=== PATIENT | male | born 1970 | race Caucasian/White ===

== ENCOUNTER 2020-09-10 10:35 | Emergency (ER) | payer BC, OTHER ==
[2020-09-10 10:42] VITALS: RESP 18; TEMP 98.5
[2020-09-10] MEDS ORDERED: MORPHINE SULFATE 4 MG/ML SYRINGE IV STA (10:59)
[2020-09-10 11:44] LABS: Basophils # (A) 0.1 k/uL (0-0.2); Basophils % (A) 1 %; Eosinophils # (A) 0.1 k/uL (0-0.7); Eosinophils % (A) 1 %; HCT 46.5 % (39.0-53.0); Lymphocytes # (A) 1.5 k/uL (1.0-4.8); Lymphocytes % (A) 12 %; MCH 32.7 pg (25.0-35.0); MCHC 34.4 g/dL (31.0-37.0); Mean Platelet Volume 8.1; Monocytes # (A) 0.3 k/uL (0-1.0); Monocytes % (A) 2 %; Neutrophils # (A) 10.4 k/uL (1.3-7.7); Neutrophils % (A) 84 %; Platelet Count 216 k/uL (150-450); RDW 12.9 % (11.5-15.5); WBC 12.5 k/uL (3.8-10.6)
[2020-09-10 11:54] LABS: ALT 15 U/L (4-49); AST 18 U/L (17-59); African American GFR (CKD) >90 (>60 ml/min/1.73 sqM); Albumin 4.2 g/dL (3.5-5.0); Alkaline Phosphatase 56 U/L (38-126); Anion Gap 9 mmol/L; Blood Urea Nitrogen 13 mg/dL (9-20); Calcium 9.2 mg/dL (8.4-10.2); Carbon Dioxide 22 mmol/L (22-30); Chloride 104 mmol/L (98-107); Glucose 123 mg/dL (74-99); Non-African American GFR(CKD) >90 (>60 ml/min/1.73 sqM); Potassium 4.6 mmol/L (3.5-5.1); Sodium 135 mmol/L (137-145); Total Bilirubin 0.4 mg/dL (0.2-1.3); Total Protein 6.8 g/dL (6.3-8.2)
--- NOTE | 2020-09-10 12:49 | CT ---
EXAMINATION TYPE: CT lumbar spine w con DATE OF EXAM: 09/10/2020 COMPARISON: 10/14/2010 MRI HISTORY: low back pain CT DLP: 1473.6 mGycm CONTRAST: CT scan of the lumbar is performed with IV Contrast, patient injected with 100 mL of Isovue 300. TECHNIQUE: CT of the lumbar spine is performed on a spiral scan at 3 mm thick sections. Reconstructed images are performed in the coronal and sagittal planes. FINDINGS: T12-L1: No focal disc herniation or significant disc bulge is evident. No spinal canal stenosis or neural foraminal stenosis is present. L1-L2: No focal disc herniation or significant disc bulge is evident. No spinal canal stenosis or n eural foraminal stenosis is present L2-L3: There is some mild disc bulging L2-L3 with mild anterior thecal sac flattening. No AP spinal c anal stenosis is present. L3-L4: Mild disc bulge with mild anterior thecal sac flattening. No AP spinal canal stenosis is prese nt. Neural foramen are patent. L4-L5: Broad-based disc bulge is present with anterior thecal sac flattening. Some endplate spurring is present which may be contributing to inferior foraminal narrowing. No spinal canal stenosis presen t. L5-S1: No focal disc herniation or significant disc bulge is evident. No spinal canal stenosis or n eural foraminal stenosis is present. Facet hypertrophy is posterior lateral thecal sac compression an d some lateral recess stenosis. Correlate with left S1 radicular symptoms. Vertebral alignment appears normal. No suspicious enhancement is evident. IMPRESSION: 1. Mild broad-based disc bulging L2-3, L3-4, L4-5 with mild anterior thecal sac flattening without st enosis. 2. Facet hypertrophy is present. This is most notable at L5-S1 on the left likely causing left S1 rad icular compression. Correlate with radicular symptoms. 3. Findings are stable from the 10/14/2010 MRI.
--- NOTE | 2020-09-10 13:06 | ED ---
Back Pain HPI - General Chief Complaint: Back Pain/Injury Stated Complaint: Back injury Time Seen by Provider: 09/10/20 10:46 Source: patient, RN notes reviewed Limitations: no limitations - History of Present Illness Initial Comments: Patient is a 50-year-old male that presents to the emergency room complaining of low back pain since Monday. He notes he was riding his lawnmower when he had a pothole and felt a pop in his lower back. He does note that he does have a history of chronic low back injuries and pain. He notes that he is able to urinate but has been constipated. He notes that he did start some new pain medications recently which could be a concerning factor. He did appear to be mildly uncomfortable while sitting up in bed. He noted that his pain was brant roximate 7-8 unrelieved with at home medications. She denied any saddle anesthesia bladder incontinence or bowel incontinence. He denied any chest pain shortness of breath headache nausea vomiting diarrhea constipation fever fatigue chills. - Related Data Home Medications Medication Instructions Recorded Confirmed Baclofen [Lioresal] 20 mg PO TID 09/10/20 09/10/20 Gabapentin 300 mg PO HS 09/10/20 09/10/20 predniSONE [Deltasone] See Taper PO DIRECTED 09/10/20 09/10/20 Allergies Allergy/AdvReac Type Severity Reaction Status Date / Time No Known Allergies Allergy Verified 09/10/20 11:32 Review of Systems ROS Statement: Those systems with pertinent positive or pertinent negative responses have been documented in the HPI. ROS Other: All systems not noted in ROS Statement are negative. Past Medical History Past Medical History: GERD/Reflux Additional Past Medical History / Comment(s): DDD History of Any Multi-Drug Resistant Organisms: None Reported Past Surgical History: Hernia Repair, Orthopedic Surgery Additional Past Surgical History / Comment(s): vasectomy Past Psychological History: No Psychological Hx Reported Smoking Status: Current every day smoker Past Alcohol Use History: Occasional Past Drug Use History: Marijuana General Exam Limitations: no limitations General appearance: alert, in no apparent distress Head exam: Present: atraumatic, normocephalic, normal inspection Eye exam: Present: normal appearance, PERRL, EOMI. Absent: scleral icterus, conjunctival injection, periorbital swelling Neck exam: Present: normal inspection Respiratory exam: Present: normal lung sounds bilaterally. Absent: respiratory distress, wheezes, rales, rhonchi, stridor Cardiovascular Exam: Present: regular rate, normal rhythm, normal heart sounds. Absent: systolic murmur, diastolic murmur, rubs, gallop, clicks Extremities exam: Present: normal inspection, full ROM, normal capillary refill. Absent: tenderness, pedal edema, joint swelling, calf tenderness Back exam: Present: normal inspection Neurological exam: Present: alert, oriented X3 Psychiatric exam: Present: normal affect, normal mood Skin exam: Present: warm, dry, intact, normal color. Absent: rash Course Vital Signs 09/10/20 10:39 Temperature 98.5 F Pulse Rate 80 Respiratory 18 Rate Blood Pressure 138/83 O2 Sat by Pulse 98 Oximetry Medical Decision Making - Medical Decision Making 50-year-old male complaining of low back pain after hitting [employer]'s lawnmower Monday. Basic labs, CT of the lumbar spine ordered. Labs unremarkable. Computed tomography scan stable compared to MRI done in 2010. 4 mg morphine ordered for pain. Case discussed with Dr. Iraheta, patient discharge home with follow-up to primary care and orthopedics as needed. - Lab Data Result diagrams: 09/10/20 11:31 09/10/20 11:31 Lab Results 09/10/20 09/10/20 Range/Units 11:31 11:31 WBC 12.5 H (3.8-10.6) k/uL RBC 4.90 (4.30-5.90) m/uL Hgb 16.0 (13.0-17.5) gm/dL Hct 46.5 (39.0-53.0) % MCV 95.0 (80.0-100.0) fL MCH 32.7 (25.0-35.0) pg MCHC 34.4 (31.0-37.0) g/dL RDW 12.9 (11.5-15.5) % Plt Count 216 (150-450) k/uL MPV 8.1 Neutrophils % 84 % Lymphocytes % 12 % Monocytes % 2 % Eosinophils % 1 % Basophils % 1 % Neutrophils # 10.4 H (1.3-7.7) k/uL Lymphocytes # 1.5 (1.0-4.8) k/uL Monocytes # 0.3 (0-1.0) k/uL Eosinophils # 0.1 (0-0.7) k/uL Basophils # 0.1 (0-0.2) k/uL Sodium 135 L (137-145) mmol/L Potassium 4.6 (3.5-5.1) mmol/L Chloride 104 (98-107) mmol/L Carbon Dioxide 22 (22-30) mmol/L Anion Gap 9 mmol/L BUN 13 (9-20) mg/dL Creatinine 0.83 (0.66-1.25) mg/dL Est GFR (CKD-EPI)AfAm >90 (>60 ml/min/1.73 sqM) Est GFR (CKD-EPI)NonAf >90 (>60 ml/min/1.73 sqM) Glucose 123 H (74-99) mg/dL Calcium 9.2 (8.4-10.2) mg/dL Total Bilirubin 0.4 (0.2-1.3) mg/dL AST 18 (17-59) U/L ALT 15 (4-49) U/L Alkaline Phosphatase 56 (38-126) U/L Total Protein 6.8 (6.3-8.2) g/dL Albumin 4.2 (3.5-5.0) g/dL - Radiology Data Radiology results: report reviewed, image reviewed CT of the lumbar spine: Mild broad based disc bulging at L2 to L3 L3-L4 L4-L5 with mild anterior thecal sac flattening without stenosis. Facet hypertrophy is present. This is most notable L5-S1 on the left likely causing left S1 radicular compression. Findings are stable from the 10/14/2010 MRI. Disposition Clinical Impression: Sciatica, Strain of lumbar region Disposition: HOME SELF-CARE Condition: Stable Instructions (If sedation given, give patient instructions): Acute Low Back Pain (ED) Additional Instructions: Please return to the Emergency Department if symptoms worsen or any other concerns. Follow-up with primary care in the next oral days. Follow-up with orthopedics as needed. Take pain medication as prescribed. Rest for the next several days, limit walking as much as possible. Avoid any strenuous activity or exercise. Is patient prescribed a controlled substance at d/c from ED?: No Referrals: Miguel Martinez DO [Primary Care Provider] - 1-2 days Yuriy Canales DO [Doctor of Osteopathic Medicine] - 1-2 days Time of Disposition: 13:06
[2020-09-10 13:16] VITALS: BP 121/71; PULSE 53
== END 2020-09-10 13:16 | disposition home or self-care (01) ==
LOC: EC 10:35
DX: S39.012A Strain of muscle, fascia and tendon of lower back, initial encounter (principal); K21.9 Gastro-esophageal reflux disease without esophagitis; K59.00 Constipation, unspecified; F17.200 Nicotine dependence, unspecified, uncomplicated; F12.90 Cannabis use, unspecified, uncomplicated; Z79.52 Long term (current) use of systemic steroids; Z79.899 Other long term (current) drug therapy; X58.XXXA Exposure to other specified factors, initial encounter
CPT/HCPCS: 51798; 36415; 80053; 85025; 72132; 99284; 96374; J2270; Q9967

== ENCOUNTER → 2020-12-08 | Outpatient (CLI) | payer OTHER ==
--- NOTE | 2020-12-08 11:16 | XR ---
Right ankle and right foot HISTORY: Pain and swelling, trauma one week prior 3 views of the right foot and 3 views of the right ankle submitted. Bone mineralization, joint spaces and alignment are maintained. There is a plantar cannula spur. Enth esophyte present in the insertion of the Achilles tendon. Small ossific density dorsal to the distal first metatarsal is well corticated and not felt likely to be acute. There are degenerative changes a t the intertarsal and tibiotalar joints. There is mild soft tissue swelling present. IMPRESSION: No acute fracture or dislocation is evident.
== END | disposition home or self-care (01) ==
LOC: RADXRYALE 08:35
PROVIDERS: ATTEND Physician Assistant
DX: M25.571 Pain in right ankle and joints of right foot (principal); M79.671 Pain in right foot; M79.89 Other specified soft tissue disorders

== ENCOUNTER → 2021-04-10 | Outpatient (CLI) | payer OTHER ==
--- NOTE | 2021-04-11 09:59 | MR ---
EXAMINATION TYPE: MR cervical spine wo con DATE OF EXAM: 04/10/2021 COMPARISON: None HISTORY: Neck pain, spasms, and numbness in hands. TECHNIQUE: Multiplanar, multisequence images of the cervical spine were acquired without contrast. C2-C3: No evidence for degenerative disc disease. No disc bulge/herniation or protrusion. No Canal stenosis. Foramina are patent bilaterally. C3-C4: There is uncovertebral joint hypertrophy and facet arthropathy resulting in right greater than left, encroachment. Minimal disc bulge causes only slight anterior mass effect on the thecal sac. C4-C5: No evident disc herniation. No foraminal encroachment. C5-C6: Posterior right paracentral disc bulge causes anterolateral mass effect on the thecal sac, the re is uncovertebral joint hypertrophy contributing to cause some right-sided foraminal encroachment. C6-C7: Left posterior paracentral disc bulge, anterolateral mass effect on the thecal sac is noted. N o significant foraminal encroachment. C7-T1: No evidence for degenerative disc disease. No disc bulg e/herniation or protrusion. No Canal stenosis. Foramina are patent bilaterally. Cervical segments are intact. There is normal alignment. Cervical spinal cord is of normal signal. Craniovertebral junction relationships are within normal limits. Cervical vertebral bodies show pre served height and alignment. There is spondylosis at C5-6 with some endplate discogenic marrow signal change and C6-7. IMPRESSION: Degenerative disc disease, multilevel foraminal encroachment.
== END | disposition home or self-care (01) ==
LOC: RADMRIMAIN 10:51
PROVIDERS: ATTEND Physician Assistant
DX: M50.123 Cervical disc disorder at C6-C7 level with radiculopathy (principal)
CPT/HCPCS: 72141

== ENCOUNTER → 2021-04-15 | Outpatient (CLI) | payer OTHER ==
--- NOTE | 2021-04-15 10:54 | MR ---
EXAMINATION TYPE: MR lumbar spine wo con DATE OF EXAM: 04/15/2021 COMPARISON: CT lumbar spine 09/10/2020, prior lumbar MRI 10/14/2010 HISTORY: Lower Back Pain across whole lower back into Both Legs. TECHNIQUE: Multiplanar, multisequence images of the lumbar spine were acquired without IV contrast. L1-L2: Normal disc appearance without desiccation. No herniation, protrusion or disc bulging. No ca nal stenosis is present. Foramina are patent bilaterally. L2-L3: Normal disc appearance without desiccation. No herniation, protrusion or disc bulging. No ca nal stenosis is present. Foramina are patent bilaterally. L3-L4: Posterior broad-based disc bulge causes mild anterior mass effect thecal sac. There is facet a rthropathy with hypertrophy ligamentum flavum. Circumferential extension endplate disc complex encroa ches minimally on the inferior aspect of the foramen. L4-L5: Circumferential extension endplate disc complex encroaches upon the bilateral foramina. Hypert rophic changes are present at the facets, lateral recess stenosis is present bilaterally. Posterior e xtension endplate disc complex contacts the anterior thecal sac. L5-S1: Facet arthropathy change is again noted, hypertrophic changes at the facet on the left contact s the left S1 nerve root similar to previous exams. Probable synovial cyst present in the right neura l foramen may contact the right L5 nerve root, correlate for radiculopathy bilaterally. Lumbar segments are intact. No paraspinal masses are identified. Conus medullaris has a normal appe arance. Lumbar vertebral bodies show stable height and alignment, there is multilevel spondylosis wit h endplate discogenic signal change, loss of disc height signal is present L4-5, L3-4 and L2-3 consis tent with disc desiccation and degenerative disc disease. There is no significant spinal stenosis. Ta rlov cysts noted at the sacral level as on prior. Prominence of the left renal collecting system agai n noted greater than right. IMPRESSION: Degenerative disc disease, facet arthropathy, foraminal encroachment and lateral recess encroachment and additional findings above, correlate for radiculopathy.
== END | disposition home or self-care (01) ==
LOC: RADMRIMAIN 09:29
PROVIDERS: ATTEND Physician Assistant
DX: M51.16 Intervertebral disc disorders with radiculopathy, lumbar region (principal); M47.26 Other spondylosis with radiculopathy, lumbar region
CPT/HCPCS: 72148

== ENCOUNTER → 2021-06-17 | Outpatient (CLI) | payer OTHER ==
[2021-06-17 09:24] VITALS: BP 135/84; PULSE 52; RESP 18; TEMP 97.8
--- NOTE | 2021-06-17 09:25 | P.CON ---
Consult Note - . Consult date: 06/17/21 Assessment/Plan:: HISTORY OF PRESENT ILLNESS: 51 yr old male as a referral from Dr. Canales presents today with severe and chronic LBP secondary to disc bulges, DDD, spondylosis, neuroforaminal encroachment, facet arthropathy and right L5 nerve root encroachment for evaluation. Patient states his pain level is 4 out of 10 in intensity, constant, pressure type sensation in the lower aspect of his lumbar spine but it escalates as high as 6 out of 10 in intensity with twisting, bending or standing for periods of 20 minutes or more. Pain also radiates to the knees bilaterally in the feet bilaterally. Pain is relieved with medications (Motrin, Lyrica), topicals, injections in the past, ice, heat, physical therapy for 2 months approximately 6 months ago, daily home stretching regimen, repositioning and rest. Past Medical History: GERD/Reflux, Lumbar DDD, Peripheral Neuropathy Past Surgical History: Inguinal Hernia Repair (2009), Vasectomy, L Knee Arthroscopy (1997) Social History: Current every day smoker. Occasional ETOH use. +Cannabis use. Family History: Non contributory All: NKDA Meds: See list REVIEW OF ORGAN SYSTEMS: CONSTITUTIONAL: No fevers or chills. No recent weight loss. HEENT: No visual acuity loss, eye pain, difficulties with hearing. No nosebleeds. No difficulty swallowing. RESPIRATORY: Denies any troubles with breathing or dyspnea on exertion. CARDIOVASCULAR: Denies any chest pain, palpitations, or recent heart attacks. GASTROINTESTINAL: Denies fatty food intolerance. Has change in bowel habits and gas bloat. GENITOURINARY: Denies any blood in urine. Has increased urinary frequency. NEUROLOGICAL: + numbness and tingling along the distal extremities. No seizure disorders or headaches. MUSCULOSKELETAL: + back pain SKIN: No skin cancer. No rash. PSYCHIATRIC: Denies current depression or suicidal thoughts. ENDOCRINE: Denies current thyroid disorders. Denies any blood sugar glucose intolerance. HEME/LYMPHATIC: Denies any lumps and bumps around the neck. History of deep venous thrombosis. ALLERGY/IMMUNOLOGY: No immunoglobulin therapy. No immune deficiencies. BREAST: Denies current breast lumps, pain or nipple discharge. Physical Examinations : Constitutional : Cooperative , not in acute distress . HEENT: Neck supple. No Lymphadenopathy. Normal thyroid size . Eyes no ptosis , no icterus, no photophobia . Hearing intact. Normal oropharynx. No Thrush. Respiratory : Chest clear to auscultations bilaterally. No wheezing. No rhonchi. Cardiovascular : Regular rate and rhythm , S1 / S2. No S3 . No S4. Gastrointestinal : Abdomen soft. No tenderness. Bowel sounds x 4. No organomegaly . Genitourinary : Deferred. Neurologic : Cranial nerve II to XII intact. No focal neurological deficits. Psychiatric : alert & oriented x 3. Matching mood & appropriate affect. Judgment & insight intact. Lymphatic No Lymphadenopathy. Musculoskeletal : Cervical Spine Motor strength in the deltoid and biceps: Normal right side. Normal Left side Motor strength biceps and the wrist extensors: Normal right side . Normal left side Motor strength in the triceps muscle: Normal right side. Normal left side Deep tendon reflexes: Normal at the biceps. Normal at Brachioradialis. Normal at triceps Cervical facet loading test: positive bilaterally Spurling test: positive bilaterally Neck distraction test: positive bilater ally Nikko sign: positive bilaterally Lumbar spine Motor strength lower extremities ,thigh and legs 5/5 Right side , 5/5 Left side Deep tendon reflexes : Normal Knee Jerk. Normal Ankle Jerk Vertebral body tenderness over Lumbar facet Loading Test: positive Right / positive Left over L4-L5 Range of motion of the lumbar spine Flexion 30 degrees, extension 10 degrees Straight Leg Raise test: Left/ Right positive at degree Hetal test: positive right / positive left. Severe tenderness over the Sacroiliac joint on the Right / Left sides Gaenslen test: positive bilaterally Seated flexion test: positive bilaterally. Imaging: MRI without contrast from 04/15/21 reviewed Assessment/ Plan : Lumbar spondylosis, Lumbar DDD Recommendation of BL facet block of the medial branches L4-L5. May need a series of injections, up until RFA, for optimal pain relief. Risks, benefits of procedure discussed and patient verbalized understanding. Denies aspirin or anti- coagulant use or medical history of diabetes. All questions answered. I have spent greater than 50 minutes on patient care today. Dr Menchaca was available by phone for the evaluation of this patient. The time was used to review the medical records including relevant urine studies and Prescription history (MAPs), review of the available imaging, evaluation and examination of the patient, coordination of care with the medical staff and if applicable referring physicians, as well as creation of the medical record PQRS Measure Charge Sheet Mode of Arrival: Ambulatory - Pain Location Bilateral Lower Back Non-Pharmacological Interventions: Heat, Home Exercise, Ice, Massage, Physical Therapy Pharmacological Interventions: PRN Medication, Scheduled Medication, Topical Medication PQRS Narrative: Smoking Status Current every day smoker Blood Pressure 135/84 Pain Intensity [Bilateral 6 Lower Back] Scale Used Numeric (1 - 10) Hx Alcohol Use (MH) No Home Medications: Ambulatory Orders Baclofen [Lioresal] 20 mg PO TID 09/10/20 Gabapentin 300 mg PO HS 09/10/20 predniSONE [Deltasone] See Taper PO DIRECTED 09/10/20
== END ==
LOC: PNWHC3 08:20
PROVIDERS: ATTEND Specialist
DX: M51.36 Other intervertebral disc degeneration, lumbar region (principal); M47.816 Spondylosis without myelopathy or radiculopathy, lumbar region; F17.200 Nicotine dependence, unspecified, uncomplicated
CPT/HCPCS: 99211

== ENCOUNTER 2021-07-22 07:00 | Day surgery (SDC) | payer OTHER ==
[2021-07-22 08:29] VITALS: TEMP 97.2
[2021-07-22] MEDS ORDERED: LACTATED RINGERS 1,000 ML IV ONE (08:50)
[2021-07-22] MEDS ORDERED: ROPIVACAINE 5MG/ML 20ML VIAL ONE (08:54)
[2021-07-22] MEDS ORDERED: MIDAZOLAM 2 MG/2 ML VIAL ONE (08:54)
[2021-07-22] MEDS ORDERED: fentaNYL (PF) 50 MCG/ML 2 ML AMP ONE (08:54)
[2021-07-22] MEDS ORDERED: methylPREDNISolone ACETATE 40 MG/ML 1 ML VIAL ONE (08:54)
[2021-07-22 08:57] LABS: Glucose,Whole Blood 88 mg/dL (75-99)
--- NOTE | 2021-07-22 09:11 | P.PCN ---
Date of Procedure: 07/22/21 Procedure(s) Performed: PREOPERATIVE DIAGNOSIS : 1- Lumbar spondylosis with Facet Arthropathy without myelopathy . 2- Lumber degenerative disc disease POSTOPERATIVE DIAGNOSIS: 1- Lumbar spondylosis with Facet Arthropathy without myelopathy . 2- Lumber degenerative disc disease PROCEDURE: Diagnostic bilateral L3 , L4 medial branch block under fluoroscopy guidance(fluoroscopy images available in the radiology Department ) ( To target the facet joint between bilateral L4-5 ) ANESTHESIA:, moderate sedation with intravenous Versed 2 mg and Fentanyl 100 mcg. EBL: Minimal COMPLICATION: None PROCEDURE INDICATION: Chronic low back pain secondary to Facet arthropathy unresponsive to conservative treatment. PROCEDURE DESCRIPTION: the patient was seen and identified in the preop holding area , risks and benefits and possible complications of the procedure and alternative were discussed with the patient, and the patient agreed to proceed with the procedure and signed the consent and vital signs monitored during the procedure and fluoroscopy was used to maximize the benefit and accuracy of the needle placement, and sedation was given to decrease patient anxiety, patient was taken to the procedure room and placed in prone position vital signs monitored in the back prepped with chlorhexidine X3 then under strict sterile technique using a right oblique fluoroscopy ,the junction of the transverse process and the superior articulating process of the right L3 , L4 vertebra which corresponding to the fluoroscopy image of the eye of the Tavon dog on the block side for the medial branches and subsequently , after local infiltration of skin and subcu tissuies with Ropivacaine 0.5 % , one mL at each level ,then 22-gauge Quincke-type needles , 2 needle was used , each one of them placed at the junction of the base of the transverse process and the superior articular process at the appropriate level, and the needle was advanced until the periosteum contacted, needle placement confirmed with AP oblique and lateral view and after appropriate needle placement confirmed, and after negative aspiration for heme and CSF and there was no paresthesia 1 mL of Ropivacaine 0.5% mixed with 20 mg Depo-Medrol , then half mL injected at each level after negative aspiration the needle subsequently removed and the same procedure repeated for the left side at left side at L3 , L4 levels. At the end of the procedure and the needles removed and a bandage applied after the skin was cleaned the cleaning solution patient taken to recovery room in stable condition and monitors in the recovery room for 20-30 minutes and discharged home in stable condition after discharge criteria met and patient will follow up with the pain clinic in 2-4 weeks
[2021-07-22] MEDS ORDERED: IV FLUID CONTINUATION 800 ML IV ONE (09:14)
[2021-07-22 09:37] VITALS: BP 99/61; PULSE 56; RESP 20
--- NOTE | 2021-07-22 15:56 | FL ---
EXAMINATION TYPE: FL guided pain mgmt statistic DATE OF EXAM: 07/22/2021 HISTORY: Fluoroscopy time 7 seconds of fluoroscopy provided. IMPRESSION: 1. Fluoroscopy time.
== END 2021-07-22 09:44 | disposition home or self-care (01) ==
LOC: ORPAIN 07:00
PROVIDERS: ATTEND Specialist
DX: M47.816 Spondylosis without myelopathy or radiculopathy, lumbar region (principal); M51.36 Other intervertebral disc degeneration, lumbar region
CPT/HCPCS: 64493; J2250; J1030; J3010; J2795; 99152

== ENCOUNTER → 2021-08-09 | Outpatient (CLI) | payer OTHER ==
[2021-08-09 14:03] VITALS: BP 147/81; PULSE 97; RESP 18; TEMP 98.4
--- NOTE | 2021-08-09 14:03 | P.PAINPG ---
PQRS Measure Charge Sheet Comment: A 51 yr old male with a history of severe and chronic low back pain secondary to lumbar degenerative disc diseases and lumbar spondylosis with facet arthropathy presents today for evaluation s/p BL RFA L4-L5 #1. He states he experienced 75% relief x 3-4 days on the L side and 75% relief for a "couple of hours" on the R side s/p procedure. Pain level is currently at 8.5/10 in intensity since 1993, constant, pinching/stabbing/tingling/sharp shooting pain down the LEs, R>L. Pain is dull/ achy/ sharp/ shooting towards . Pain is provoked by lifting, standing/walking for periods of 30 min or more. Pain is alleviated with heat, ice, PT last completed July 2021, massage therapy integrated with PT, medications ([place], Neurontin) topicals, inactivity, +Cannabis use and rest. Interventional pain procedures completed include BL RFA L4-L5 Patient is currently on [place], Neurontin Patient denies any side effects of the medication(s), denies excessive drowsiness or sleepiness, denies suicidal ideation and reports that the current pain medication is helping to control the pain and improve activities of daily living. Patient denies any motor or sensory deficits. Patient denies any fever or night sweats, denies any change in the bowel movements or urination. Physical Examination: -Constitutional: Cooperative. Not in acute distress . - Neurologic: Cranial nerve II to XII intact. No focal neurological deficits. - Psychatric: Alert & oriented x 3. Matching mood & appropriate affect. Judgment and insight intact. - Musculoskeletal: Cervical spine: Muscle bulk/ tone/ strength in the bilateral upper extremities normal Vertebral body tenderness to palpation over Spurling test positive Distraction test positive Facet loading test positive Thoracic spine Muscle bulk / tone/ strength in the bilateral paraspinal muscles normal Vertebral body tender to palpation over Facet loading test positive Lumbar spine: Motor bulk/ tone/ strength lower extremities , thigh and legs : 5/5 Deep tendon reflexes : Normal Knee Jerk. Normal Ankle Jerk . Vertebral body tenderness to palpation over BL L4-L5 w jump reflex and paraspinal TTP Lumbar Facet Loading Test positive Straight Leg Raise: positive at 30 degrees right side/ left side Gaenslen's Test positive Sacral spine : Severe tenderness over the Sacroiliac joint: right side / left side Range of motion: Flexion of the lumbar spine <60 degrees Range of motion: Extension of the lumbar spine <20 degrees Gaenslen's Test positive Waqas's Test positive Hetal test: positive right side / left side Thigh Thrust Test Sacral Thrust Test Assessment and plan: Chronic low back pain secondary to lumbar degenerative disc disease , lumbar spondylosis with facet arthropathy without myelopathy Recommendation of BL MBB of L4-L5. #2. May need a series of injections, up until RFA, for optimal pain relief. Risks, benefits of procedure discussed and pt verbalized understanding. Denies anticoagulant use or medical history of diabetes. All patient questions answered MAPS reviewed and it was appropriate. I have spent less than 30 minutes on patient care today. Dr Menchaca was available by phone for the evaluation of this patient. The time was used to review the medical records including relevant urine studies and Prescription history (MAPs), review of the available imaging, evaluation and examination of the patient, coordination of care with the medical staff and if applicable referring physicians, as well as creation of the medical record PQRS Narrative: Smoking Status Current every day smoker Hx Alcohol Use (MH) No Home Medications: Ambulatory Orders Gabapentin 300 mg PO TID 09/10/20 Ibuprofen [Motrin] 800 mg PO Q8HR PRN 07/22/21 Omeprazole [PriLOSEC] 40 mg PO DAILY 07/22/21 Controlled Substance Measures - Controlled Substance Measures Is patient prescribed a controlled substance at discharge?: No
== END ==
LOC: PNWHC3 13:29
PROVIDERS: ATTEND Specialist
DX: M51.36 Other intervertebral disc degeneration, lumbar region (principal); M47.816 Spondylosis without myelopathy or radiculopathy, lumbar region; G89.29 Other chronic pain; F17.200 Nicotine dependence, unspecified, uncomplicated
CPT/HCPCS: 99211

== ENCOUNTER 2021-08-27 07:38 | Day surgery (SDC) | payer OTHER ==
[2021-08-27] MEDS ORDERED: LACTATED RINGERS 1,000 ML IV SCH (07:45)
[2021-08-27 08:07] VITALS: RESP 16; TEMP 97.7
[2021-08-27 08:22] LABS: Glucose,Whole Blood 99 mg/dL (70-110)
[2021-08-27] MEDS ORDERED: ROPIVACAINE 5MG/ML 20ML VIAL ONE (09:08)
[2021-08-27] MEDS ORDERED: fentaNYL (PF) 50 MCG/ML 2 ML AMP ONE (09:08)
[2021-08-27] MEDS ORDERED: LIDOCAINE 1% INJ 10MG/ML (20 ML MDV) ONE (09:08)
[2021-08-27] MEDS ORDERED: MIDAZOLAM 2 MG/2 ML VIAL ONE (09:08)
[2021-08-27] MEDS ORDERED: TRIAMCINOLONE ACETONIDE 40 MG/ML 1 ML VIAL ONE (09:08)
[2021-08-27] MEDS ORDERED: IV FLUID CONTINUATION 1,000 ML IV ONE ×2 (09:26)
--- NOTE | 2021-08-27 09:26 | FL ---
Intraoperative/procedural fluoroscopic services were provided. Total fluoroscopy time is 4 seconds wi th a total of 2 submitted images to PACS. Please see the operative/procedural note for further detail s.
--- NOTE | 2021-08-27 09:27 | P.PCN ---
Date of Procedure: 08/27/21 Description of Procedure: Pre- and Post-operative Diagnosis: Lumbar facet arthropathy, and lumbar spondylosis without myelopathy. Procedure: #2 Diagnostic Medial Branch Block at bilateral Lumbar 4/5 (total 2 levels) Surgeon: Lilo Sagastume Anesthesia: Local: 1% Lidocaine, IV sedation : Versed 2 mg and fentanyl 100 g. Complications: None EBL: None Specimen removed: None Fluoroscopic image: Saved to patient electronic medical records. Indications for Procedure: The patient is well known to pain clinic for his chronic low back pain management. The lumbar facet loading test was positive with a clinical diagnosis of lumbar facet arthropathy. Failed with conservative therapy. Came here for interventional help for better pain relief. Procedure and Findings: The patient was seen and examined. The written informed consent was obtained after explaining the risks, benefits and alternatives of the procedure to the patient. The patient was brought to the procedure room and was placed in the prone position on the operating table table. A pillow was placed under the abdomen to reduce lumbar lordosis. Standard anesthesia monitoring was done through out the procedure. The skin preparation was done with ChloraPrep X1, and draping was done in usual sterile fashion. Sterile technique was observed throughout the procedure. Under fluoroscopic guidance, right-sided the Lumbar 4, 5 and Sacral ala levels were identified in the AP view. For lumbar L4, and L5 levels the targeting area of superior articular process, and close to the most medial and superior aspect of transverse process identified, marked. 1ml of 1% Lidocaine was used with a 25 gauge needle to achieve adequate local anesthesia of the skin and subcutaneous tissue at each level. A 22 gauge 3.5 inch spinal needle was placed and advanced targeting area which was close to the most medial and superior aspect of the transverse process. A bony contact was obtained and needle tip position was confirmed at anteroposterior view. No paresthesia was noted. A negative aspiration was confirmed. 1 ml solution per level was injected, the block solution containing 3 ml of 0.5% ropivacaine preservative-free solution mixed with 40 MG of Kenalog. The needles were removed intact. Entire procedure repeated on the left side. Lumbar area was cleaned and bandages were applied. Disposition : The patient tolerated the procedure very well. The patient was transferred to the recovery room and remained stable until discharged home. The patient was given detailed discharge instructions for infecti a on, bleeding, and increased pain at the injection site, and was advised to seek immediate medical attention should significant side effects develop. The patient will be scheduled with Pain Clinic within 4 weeks duration
[2021-08-27 09:31] VITALS: BP 111/72; PULSE 56
== END 2021-08-27 09:57 | disposition home or self-care (01) ==
LOC: ORPAIN 07:38
DX: M47.816 Spondylosis without myelopathy or radiculopathy, lumbar region (principal); G89.29 Other chronic pain; E11.9 Type 2 diabetes mellitus without complications; K21.9 Gastro-esophageal reflux disease without esophagitis; F17.210 Nicotine dependence, cigarettes, uncomplicated; Z79.899 Other long term (current) drug therapy
CPT/HCPCS: 64493; 64494; J2250; J3301; J2001 ×2; J3010; J2795

== ENCOUNTER → 2021-11-11 | Outpatient (CLI) | payer OTHER | END | disposition home or self-care (01) | LOC: LABPAT 08:51 | PROVIDERS: ATTEND Orthopaedic Surgery | DX: Z01.812 Encounter for preprocedural laboratory examination (principal); M48.061 Spinal stenosis, lumbar region without neurogenic claudication; Z22.322 Carrier or suspected carrier of Methicillin resistant Staphylococcus aureus | CPT/HCPCS: 87070 ==

== ENCOUNTER 2021-11-18 09:07 | Day surgery (SDC) | payer OTHER ==
[2021-11-15 11:37] VITALS: BMI 28.0
[~2021-11-18 09:07] MED LIST: ACETAMINOPHEN TAB 500 MG TAB PO PRN; DEXAMETHASONE SOD PHOSPHATE 4 MG/ML 1 ML VIAL IV ONE; LACTATED RINGERS 1,000 ML IV SCH; ONDANSETRON 4 MG/2 ML VIAL IVP PRN; TRANEXAMIC ACID IN NACL,ISO-OS 1,000 MG in SALINE 1 100ML.BAG IVPB PRN
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
[2021-11-18] MEDS: GABAPENTIN 300 MG CAP PO PRN ×2 (09:54→17:24)
[2021-11-18] MEDS ORDERED: LACTATED RINGERS 1,000 ML IV ONE ×2 (10:06→13:15)
[2021-11-18] MEDS: ONDANSETRON 4 MG/2 ML VIAL IVP ONE ×2 (10:07→15:19)
[2021-11-18] MEDS ORDERED: LIDOCAINE 2% INJ 20 MG/ML (2 ML VIAL) ONE (12:16)
[2021-11-18] MEDS ORDERED: KETAMINE 10 MG/ML 20 ML VIAL ONE (12:16)
[2021-11-18] MEDS ORDERED: SUCCINYLCHOLINE CHLORIDE 200 MG/10 ML VIAL IV ONE (12:16)
[2021-11-18] MEDS ORDERED: PROPOFOL 10 MG/ML 20 ML VIAL IV ONE (12:16)
[2021-11-18] MEDS ORDERED: GLYCOPYRROLATE 0.2 MG/ML 2 ML VIAL ONE (12:16)
[2021-11-18] MEDS ORDERED: fentaNYL (PF) 50 MCG/ML 2 ML AMP ONE (12:16)
[2021-11-18] MEDS ORDERED: TRANEXAMIC ACID IN NACL,ISO-OS 1,000 MG/100 ML BAG ONE (12:16)
[2021-11-18] MEDS ORDERED: MIDAZOLAM 2 MG/2 ML VIAL ONE (12:16)
[2021-11-18] MEDS ORDERED: ROCURONIUM 10 MG/ML (5 ML VIAL) IV ONE (12:16)
[2021-11-18] MEDS ORDERED: NEOSTIGMINE 1 MG/ML 10 ML VIAL ONE (12:16)
[2021-11-18] MEDS ORDERED: BUPIVACAINE (PF) 0.5% 30 ML VIAL SQ ONE (12:21)
[2021-11-18] MEDS ORDERED: THROMBIN (BOVINE) 5,000 UNIT VIAL TOPICAL ONE (12:21)
[2021-11-18] MEDS ORDERED: GELATIN SPONGE,ABSORB (LARGE) 1 EACH SPONGE TOPICAL ONE (12:21)
[2021-11-18] MEDS ORDERED: VANCOMYCIN 1,000 MG VIAL MISCELLANE ONE (14:19)
--- NOTE | 2021-11-18 14:40 | FL ---
EXAMINATION TYPE: FL guidance operating room DATE OF EXAM: 11/18/2021 HISTORY: Fluoroscopy time 13 seconds of fluoroscopy provided. IMPRESSION: 1. Fluoroscopy time.
--- NOTE | 2021-11-18 14:41 | XR ---
EXAM TYPE: LUMBAR SPINE X RAY SERIES COMPARISON: NONE HISTORY: Intraoperative TECHNIQUE: 7 views are submitted. FINDINGS: Limited resolution intraoperative views are submitted. IMPRESSION: 1. Intraoperative image.
[2021-11-18 14:48] VITALS: RESP 16; TEMP 97.8
[2021-11-18] MEDS: HYDROmorphone 0.5 MG/0.5 ML SYRINGE IVP PRN ×3 (15:02→15:49)
[2021-11-18] MEDS ORDERED: HYDROcodone/APAP 10-325MG 1 EACH TAB ONE (16:49)
[2021-11-18] MEDS ORDERED: HYDROcodone/APAP 10-325MG 1 EACH TAB PO ONE (16:55)
[2021-11-18 17:05] VITALS: BP 143/88; PULSE 58
--- NOTE | 2021-11-19 08:20 | P.OP ---
Date of Procedure: 11/18/21 Preoperative Diagnosis: 1. L4-5 central and b/l foraminal stenosis 2. L4-5 spondylosis, mild 3. LE radiculopathy 4. LE weakness Postoperative Diagnosis: 1. L4-5 central and b/l foraminal stenosis 2. L4-5 spondylosis, mild 3. LE radiculopathy 4. LE weakness Procedure(s) Performed: 1. Bilateral laminotomy, partial medial facetectomy and foraminotomy L4-5 (52359/50) 2. INsertion of interlaminar device without fusion, Coflex (00378/59) 3. Use of intraoperative microscope (21029) Implants: 10 mm coflex Anesthesia: GETA Surgeon: Yuriy Canales Digital [employer] Manager #1: Laurie Camejo (Was present and assisted in all aspects ofthe case including positioniong, dissection, decompression hardware, closure dressing. ) Estimated Blood Loss (ml): 50 Pathology: none sent Condition: stable Disposition: PACU Indications for Procedure: Mr. Gil is presenting for evaluation of low back pain and right lower extremity radiculopathy. It was my pleasure to have seen and examined Mr. Gil. In our visit today we have had a chance to go over subjective complaints, physical examination findings and treatments including the natural course history without intervention and various interventional options. The patients imaging demonstrates: XRay taken on 05/20/21 of Lumbar Spine and pelvis: Multiple Views of the lumbar spine obtained and reviewed and demonstrate normal sagittal as well as coronal alignment. Disc heights and vertebral body heights are maintained. There is no fracture or dislocation noted. No listhesis noted. AP pelvis demonstrates congruent level pelvis no fracture or dislocation MRI scan from 04/15/2021 of Lumbar Spine: This is reviewed and demonstrates mild disc bulge L4-L5 causing bilateral foraminal stenosis. There is disc desiccation at this level with disc height loss and hydration loss. There is facet arthrosis noted at this level as well. No acute fracture or dislocation is noted in the lesion. On physical exam, Mr. Gil demonstrates significantly restricted lumbar ROM due to pain with right lower extremity L4-L5 dermatomal disturbance impacting his gait. I have explained to the patient that as their condition progresses it will cause further neurological deficits and eventual paralysis. Based on the patients imaging, physical exam, and the rapid progression and disabling nature of their symptoms, at this time I recommend surgery in the form or a: lumbar (L4-L5) Decompression with Coflex Placement. I discussed the risk and benefits of this procedure at length with Mr. Gil. The patient agreed to considered pursuing the procedure abovementioned. Prior to surgery, she should follow up with her PCP (Cardio, ID, IM etc) for clearance. Questions were invited and answered, and the patient wishes to proceed as outlined below. Currently, I am recommendin.lumbar (L4-L5) Decompression with Coflex Placement 2.Follow up with PCP for surgical clearance 3.Review of surgical risks and benefits as well as an educational packet on the proposed surgical procedure. Description of Procedure: The patient was seen and examined in the preoperative area. All preoperative protocols were followed. Informed consent was obtained risks and benefits of the procedure were discussed at length. Risks including bleeding infection damage to the surrounding tissue and risk of reoperation were discussed with the patient. Risk of anesthesia up to and including was a discussed with the patient. These are outlined in the risk review. They were willing to accept these risks and all of the risks of surgery. The patient was given a weight- based dose of antibiotics in the form of 2 g Ancef. The patient was seen and evaluated by the anesthesia team who deemed them fit for surgery. The site was marked, the patient was willing to proceed with the procedure. The patient was transferred to the operative suite by the Department of anesthesia. They were then drifted off to sleep by the department anesthesia and GETA was performed. The patient tolerated this well. [Deluca catheter was placed by nursing staff, atraumatically]. Once confirmation of lines and ventilation the patient was transferred to a [prone Justino table very carefully]. All bony prominences including wrists, elbows, axilla, chest, hips, and thighs, and feet were padded very well. Special attention was paid to the genitalia and these were padded accordingly. SCDs were placed on bilateral lower extremities and were connected. Arms were well padded and placed [on arm boards up and out in the 90/90 position]. Once in position, again we confirmed good ventilation capabilities and that lines were running appropriately. The patient's lumbar spine was then exposed. 1010s were placed outlining the incision site. Standard alcohol was used to clean the incision site and allowed to dry. C-arm was used to biomark the patient and confirm level for incision which was marked with a skin marker. Operative briefing was performed with all teams and everyone in agreement to proceed. The patient was then prepped and draped in a normal sterile fashion. Timeout was then performed and all parties were in agreement with the procedure to be performed. Midline skin incision was made over the previously marked area and dissection taken down to the lumbar fascia which was identified and cleaned with a Anguiano. Bilateral midline sparing fasciotomy was performed and subperiosteal dissection taken down over the lamina of L3 4 and L5. Pars was identified at L4 and a blunt probe was placed here lateral fluoroscopic image confirmed level for decompression. Versatrac retractor was then placed. Further dissection revealed exuberant overgrowth of facet joints with osteophyte formation as well as scar tissue formation which was removed. Operating microscope was then brought in for visualization. Bilateral midline sparing laminotomies partial medial facetectomy and foraminotomy was performed using high-speed bur, Kerrison rongeur, up-biting curet. Once this was accomplished the interspinous space was cleared of any ligamentous or scar tissue which allowed for visualization and decompression in this area. We then using lateral fluoroscopy-sized for a Coflex implant. A 10 mm implant was selected once this was accomplished it was impacted into place under lateral fluoroscopic guidance and the fins crimped. A Prue was then used test stability and it was stable. We then irrigated the wound thoroughly with 3 L of normal sterile saline 3 L of antibiotic solution. We inspected the area there are no dural leaks or tears meticulous hemostasis was performed. Wound was then closed with OPDS in the facia followed by 0 Vicryl in the deep SubQ tissue followed by 2-0 in the superficial subQ tissue followed by 3-0 stratafix in the subcuticular. Wound edges approximated well. Wound was cleaned and dressed with skin glue allowed to dry and then an optifoam dressing. The patient was transferred back to their hospital bed atraumatically. Patient was then awakened and extubated by the department of anesthesia having tolerated the procedure very well with no complications. They were transferred to the postoperative care unit in stable condition.
== END 2021-11-18 17:59 | disposition home or self-care (01) ==
LOC: OR 09:07
PROVIDERS: ATTEND Orthopaedic Surgery
DX: M48.061 Spinal stenosis, lumbar region without neurogenic claudication (principal); M47.26 Other spondylosis with radiculopathy, lumbar region; K21.9 Gastro-esophageal reflux disease without esophagitis; F17.210 Nicotine dependence, cigarettes, uncomplicated; F12.90 Cannabis use, unspecified, uncomplicated; F10.90 Alcohol use, unspecified, uncomplicated; Z79.899 Other long term (current) drug therapy; Z98.890 Other specified postprocedural states; Z98.52 Vasectomy status
CPT/HCPCS: 86900; 86901; 86850; 72100; 63030; C1713; C1762; J2250; J3370; J0330; J1100; J2710; J0690; J2405; J3010; J2704; J1170; J1790; J2001

== ENCOUNTER → 2022-01-19 | Outpatient (CLI) | payer OTHER ==
[2022-01-19 09:09] VITALS: BP 127/87; PULSE 87; RESP 18; TEMP 98.4
--- NOTE | 2022-01-19 14:23 | P.PAINPG ---
PQRS Measure Charge Sheet Comment: A 51 yr old male with a history of severe and chronic neck and low back pain secondary to cervical & lumbar DDD and spondylosis with facet arthropathy without myelopathy presents today for LBP evaluation. Pt was recommended to have CASSIE L4-L5 in the recent past and he underwent a L4-L5 Decompression w Coflex placement approximately 2 mo ago. Pain level is currently at 8/10 in intensity, constant, localized in the R lower cervical spine, sharp in character w shooting towards the R shoulder and RUE. Pain is provoked by rotation. Pain is alleviated with PT 3 yrs ago, home guided exercises, medications (Flexeril, Neurontin, Ibu, Naproxen), topicals, alternating heat & ice, soaking in Epsom salt and rest. Interventional pain procedures completed include Patient is currently on Flexeril, Neurontin, Ibu, Naproxen Patient denies any side effects of the medication(s), denies excessive drowsiness or sleepiness, denies suicidal ideation and reports that the current pain medication is helping to control the pain and improve activities of daily living. Patient denies any motor or sensory deficits. Patient denies any fever or night sweats, denies any change in the bowel movements or urination. Physical Examination: -Constitutional: Cooperative. Not in acute distress . - Neurologic: Cranial nerve II to XII intact. No focal neurological deficits. - Psychatric: Alert & oriented x 3. Matching mood & appropriate affect. Judgment and insight intact. - Musculoskeletal: Cervical spine: Muscle bulk/ tone/ strength in the bilateral upper extremities normal Vertebral body tenderness to palpation over C6 Spurling test positive Distraction test positive Facet loading test positive Thoracic spine Muscle bulk / tone/ strength in the bilateral paraspinal muscles normal Vertebral body tender to palpation over Facet loading test positive Lumbar spine: Motor bulk/ tone/ strength lower extremities , thigh and legs : 5/5 Deep tendon reflexes : Normal Knee Jerk. Normal Ankle Jerk . Vertebral body tenderness to palpation over Lumbar Facet Loading Test positive Straight Leg Raise: positive at 30 degrees right side/ left side Gaenslen's Test positive Sacral spine : Severe tenderness over the Sacroiliac joint: right side / left side Range of motion: Flexion of the lumbar spine <60 degrees Range of motion: Extension of the lumbar spine <20 degrees Gaenslen's Test positive Hetal test: positive right side / left side Thigh Thrust Test Sacral Thrust Test Imaging MRI without contrast of the cerivcal spine from Apr 10, 2021 reviewed Assessment and plan: Chronic neck and LBP secondary to DDD, spondylosis with facet arthropathy without myelopathy Recommendation of CASSIE C5-C6. May need a series of injections, up to 3 within a 6mo period, for optimal pain relief. Risks, benefits of procedure discussed and pt verbalized understanding. Admits to anticoagulant use or medical history of diabetes. Protocol for discontinuation/ continuation of medications larry procedure discussed. All patient questions answered I have spent less than 30 minutes on patient care today. Dr Menchaca was available by phone for the evaluation of this patient. The time was used to review the medical records including relevant urine studies and Prescription history (MAPs), review of the available imaging, evaluation and examination of the patient, coordination of care with the medical staff and if applicable referring physicians, as well as creation of the medical record PQRS Narrative: Smoking Status Current every day smoker Hx Alcohol Use (MH) No Home Medications: Ambulatory Orders Gabapentin 300 mg PO TID 09/10/20 Ibuprofen [Motrin] 800 mg PO Q8HR PRN 07/22/21 Naproxen 250 mg PO DIRECTED PRN 08/27/21 Pantoprazole [Protonix] 40 mg PO QAM 08/27/21 Multivitamins, Thera [Multivitamin (formulary)] 1 tab PO DAILY 11/15/21 Sertraline [Zoloft] 100 mg PO QAM 11/15/21 Cyclobenzaprine [Flexeril] 10 mg PO TID PRN #40 tab 11/18/21 Gabapentin 300 mg PO TID #90 cap 11/18/21 HYDROcodone/APAP 10-325MG [Pender 10-325] 1 tab PO Q4HR PRN #42 tab 11/18/21 Sennosides/Docusate Sodium [Senna Plus 8.6-50 mg Softgel] 1 each PO BID PRN #20 capsule 11/18/21 cefaDROXiL [Duricef] 500 mg PO Q12HR #6 cap 11/18/21 Controlled Substance Measures - Controlled Substance Measures Is patient prescribed a controlled substance at discharge?: No
== END ==
LOC: PNWHC3 08:42
PROVIDERS: ATTEND Specialist
DX: M47.816 Spondylosis without myelopathy or radiculopathy, lumbar region (principal); M51.36 Other intervertebral disc degeneration, lumbar region; G89.29 Other chronic pain; F17.200 Nicotine dependence, unspecified, uncomplicated
CPT/HCPCS: 99211

== ENCOUNTER 2022-05-10 07:21 | Day surgery (SDC) | payer OTHER ==
[~2022-05-10 07:21] MED LIST changes: -ACETAMINOPHEN TAB 500 MG TAB PO PRN; -DEXAMETHASONE SOD PHOSPHATE 4 MG/ML 1 ML VIAL IV ONE; +LIDOCAINE 1% (10MG/ML) FOR IV START INTRADERMA PRN; -ONDANSETRON 4 MG/2 ML VIAL IVP PRN; -TRANEXAMIC ACID IN NACL,ISO-OS 1,000 MG in SALINE 1 100ML.BAG IVPB PRN
[2022-05-10 08:08] VITALS: TEMP 97.9
[2022-05-10 08:21] LABS: Glucose,Whole Blood 97 mg/dL (70-110)
[2022-05-10] MEDS ORDERED: IOPAMIDOL M200 10 ML VIAL ONE (08:42)
[2022-05-10] MEDS ORDERED: DEXAMETHASONE SOD PHOSPHATE 10 MG/ML 1 ML VIAL ONE (08:42)
--- NOTE | 2022-05-10 09:01 | P.PCN ---
Date of Procedure: 05/10/22 Procedure(s) Performed: PREOPERATIVE DIAGNOSIS: 1-Cervical radiculopathy . 2-cervical degenerative disc disease. 3-cervical spondylosis versus cervical facet arthropathy POSTOPERATIVE DIAGNOSIS: Same as preoperative diagnoses. PROCEDURE 1. Transforaminal epidural steroid injection under fluoroscopic guidance at right C6-7 level. (Fluoroscopy images stored on file in the radiology Department ) ANESTHESIA: Local with 1% lidocaine 3 ml only EBL: Minimal PROCEDURE INDICATION: The patient with severe neck pain and radiculopathy to the upper extremity , the symptoms unresponsive to conservative treatment. PROCEDURE DESCRIPTION / TECHNIQUE: The patient was seen and identified in the preoperative area. Risks, benefits, complications, and alternatives were discussed with the patient. The patient agreed to proceed with the procedure and signed the consent. IV was started, and vital signs were stable. Patient was taken to the OR and time out was completed. The patient was placed in the lateral position on procedure table ( right side up ) The cervical area was prepped and draped in the usual sterile fashion. Critical pause was taken. Vital signs were closely monitored during the procedure. . Using oblique fluoroscopy, the right C6-7 level was identified, in the lateral view , the skin and deeper tissues just below was localized with 1% lidocaine. Subsequently, a 22-gauge 3.5-inch spinal needle was advanced under a tunneled view fluoroscopic guidance just underneath the foraminotomy of at the right C6-7 Under lateral fluoroscopy, the needle was then advanced to the posterior border of the interforaminal space. After negative aspiration of CSF and blood and with no paresthesias, 1 mL Isovue 200 contrast dye was injected excellent epidurogram , 2 mL of block solution containing 20 mg Dexamethasone and 1 mL of 0.9% normal saline PF was injected. Needle was removed . At the end of the procedure, skin was cleansed, and bandages were applied. COMPLICATIONS:none DISPOSITION / PLANS: The patient was placed in a supine position and transferred to the recovery area in a stable condition for observation. There was no evidence of lower extremity motor or sensory deficit after the procedure. Patient was discharged from the recovery room after meeting discharge criteria. Home discharge instructions were given to the patient by the staff. The patient was reexamined prior to discharge.
[2022-05-10 09:06] VITALS: BP 123/78; PULSE 60; RESP 16
--- NOTE | 2022-05-10 09:30 | FL ---
EXAMINATION TYPE: FL guided pain mgmt statistic DATE OF EXAM: 05/10/2022 HISTORY: Fluoroscopy time DAP .69302 of fluoroscopy provided. IMPRESSION: 1. Fluoroscopy time.
== END 2022-05-10 09:20 | disposition home or self-care (01) ==
LOC: ORPAIN 07:21
PROVIDERS: ATTEND Specialist
DX: M50.123 Cervical disc disorder at C6-C7 level with radiculopathy (principal); M47.22 Other spondylosis with radiculopathy, cervical region
CPT/HCPCS: 64479; J1100; Q9966; 64483

== ENCOUNTER → 2022-06-29 | Outpatient (CLI) | payer OTHER | END | disposition home or self-care (01) | LOC: LABPAT 09:32 | PROVIDERS: ATTEND Orthopaedic Surgery | DX: Z01.812 Encounter for preprocedural laboratory examination (principal); M50.20 Other cervical disc displacement, unspecified cervical region; Z22.322 Carrier or suspected carrier of Methicillin resistant Staphylococcus aureus | CPT/HCPCS: 87070 ==

== ENCOUNTER 2022-07-07 11:34 | Day surgery (SDC) | payer OTHER ==
[2022-07-01 09:23] VITALS: BMI 29.0
--- NOTE | 2022-07-07 07:41 | P.HPOR ---
History of Present Illness H&P Date: 06/29/22 .D:Date: 06/29/22 : 09:10am .T:Title: [facility] Date of :[birth year] [id number]: Age: 51 year Height: 6'4" Weight: 240 lbs BMI: 29.21 kg/m2 Occupation: unemployed VAS: 6 CHIEF COMPLAINT: Cervical spine - preoperative visit DOI: Chronic DOS: None regarding the cervical spine HISTORY: Xrays New xrays taken in office Trauma or injury No Work-Related No Pain description aching, burning Location posterior Patient notes that their pain radiates to left upper extremity Activity Modification yes Hand Dominance left TREATMENTS COMPLETED: 6 weeks of PT completed? Month and Year of last PT date? None recent for cervical spine. completed physical therapy with no relief Physician directed home exercise completed? yes Patient has trialed the physician directed home exercise program without ) relief of their symptoms. Medications yes List: Naproxen, gabapentin, motrin, norco and zanaflex Alternative interventions Chiropractic: No Massage therapy: No R.I.C.E: yes heat/ice without relief. Brace: No Injections Yes, within the last 1 year RFA: No SUBJECTIVE: Mr. Gil returns to the office for a follow up of their cervical pain. Patient reports aching, burning cervical pain ongoing for many months with no known injury or trauma to indicate an exact onset of their symptoms. In addition to their cervical pain, they do report that it radiates into the left upper extremity, associated with numbness and tingling through the C5-C6 dermatomal distribution. Furthermore he reports loss in dexterity with regards to the left hand as well over time. Overall the patient has seen a progressive increase in symptoms since their onset. Mr. Gil's symptoms are exacerbated with any twisting of the neck and use of the left arm, due to this they notes that it is increasingly difficult for him to complete many of their daily tasks. Patient is having severe sleep disturbances as well due to their ongoing pain and associated symptoms. Regarding treatments, the patient has previously trialed home exercises, medications, epidural steroid injections, and heat/ice without relief. Patient has also finished physical therapy with no relief. Patient denies trialing any other modalities at this time. For their symptoms, the patient has been taking motrin and norco without improvements. Otherwise the patient denies any f/c/sob/cp, no incision concerns, no bladder or bowel retention/incontinence, no perineal numbness/tingling, and ambulates independently. HPI: Mr. Gil returns to the office on 05/26/2022 for a follow up of their cervical pain. Patient reports aching, burning cervical pain ongoing for many months with no known injury or trauma to indicate an exact onset of their symptoms. In addition to their cervical pain, they do report that it radiates into the left upper extremity, associated with numbness and tingling through the C5-C6 dermatomal distribution. Furthermore he reports loss in dexterity with regards to the left hand as well over time. Overall the patient has seen a progressive increase in symptoms since their onset. Mr. Gil symptoms are exacerbated with any twisting of the neck and use of the left arm, due to this they notes that it is increasingly difficult for Mr. Gil to complete many of their daily tasks. Patient is having severe sleep disturbances as well due to their ongoing pain and associated symptoms. Regarding treatments, the patient has previously trialed home exercises, medications, and heat/ice without relief. Patient has also finished physical therapy with no relief. Patient denies trialing any other modalities at this time. For their symptoms, the patient has been taking naproxen, gabapentin, motrin, zanaflex and norco without improvements. Otherwise the patient denies any f/c/sob/cp, no incision concerns, no bladder or bowel retention/incontinence, no perineal numbness/tingling, and ambulates independently. Mr. Gil returns to the office for a follow up of their cervical pain on 03/30/2022. Patient reports aching, burning cervical pain ongoing for several months with no known injury or trauma to indicate an exact onset of their symptoms. In addition to their cervical pain, they do report that it radiates into the left upper extremity, associated with numbness and tingling through the C5-C6 dermatomal distribution. Furthermore he reports loss in dexterity with regards to the left hand as well over time. Overall the patient has seen a progressive increase in symptoms since their onset. Mr. Gil symptoms are exacerbated with any twisting of the neck and use of the left arm, due to this they notes that it is increasingly difficult for Mr. Gil to complete many of their daily tasks. Patient is having severe sleep disturbances as well due to their ongoing pain and associated symptoms. Regarding treatments, the patient has previously trialed home exercises, medications, and heat/ice without relief. Patient denies trialing any other modalities at this time. For their symptoms, the patient has been taking naproxen and norco without improvements. Otherwise the patient denies any f/c/sob/cp, no incision concerns, no bladder or bowel retention/incontinence, no perineal numbness/tingling, and ambulates independently. Mr. Gil returns to the office on 12/24/2021 for an evaluation of their cervical pain. Patient reports aching, burning cervical pain ongoing for several months with no known injury or trauma to indicate an exact onset of their symptoms. In addition to their cervical pain, they do report that it radiates into the left upper extremity, associated with numbness and tingling through the C5-C6 dermatomal distribution. Furthermore he reports loss in dexterity with regards to the left hand as well over time. Overall the patient has seen a progressive increase in symptoms since their onset. Mr. Gil symptoms are exacerbated with any twisting of the neck and use of the left arm, due to this they notes that it is increasingly difficult for Mr. Gil to complete many of their daily tasks. Patient is having severe sleep disturbances as well due to their ongoing pain and associated symptoms. Regarding treatments, the patient has previously trialed home exercises, medications, and heat/ice without relief. Patient denies trialing any other modalities at this time. For their symptoms, the patient has been taking Gabapentin and Ibuprofen without improvements. Otherwise the patient denies any f/c/sob/cp, no incision concerns, no bladder or bowel retention/incontinence, no perineal numbness/tingling, and ambulates independently. The patients' past social, medical, family, surgical history, as well as review of systems, have been reviewed. Please refer to the Neurosurgery History and Physical form that has been scanned in to our electronic medical record system. 14 points review of systems completed and as stated in HPI, all other systems reviewed are negative. Social History: Reviewed, see appropriate section of the chart for details. P3 Social History: Smoking: current smoker P3 Smoking Amount: 3 PPW Alcohol: occasional alcohol P3 Alcohol Amount: 1-2 drinks/wk Family History: Reviewed, see appropriate section of the chart for details. P2 Past Medical History: Reviewed, see appropriate section of the chart for details. P1 Current Medications: Rx: omeprazole 40 mg capsule,delayed release Ref: 0 Rx: IBU 800 mg tablet Ref: 0 Rx: gabapentin 600 mg tablet Ref: 0 Rx: cefaDROXil 500 mg capsule Ref: 0 PHYSICAL EXAMINATION: General: Awake, alert, appropriate for age, in no acute distress. HEENT: No unusual neck masses around region of lateral neck triangle, thyroid, supraclavicular groove Extremities: Skin warm and dry without acute lesions, coloration, temperature, skin intact, no tenderness or erythema Integument: Hairy patches: ABSENT Dorsal skin dimples: ABSENT Cafe au lait spots: ABSENT Surgical incisions: well healed midline incision about the lumbar spine. Palpation: Please see Pain drawing on Intake sheet for further detail. Midline spinal tenderness: No E6 Cervical Tenderness: No E6 Paralumbar tenderness: YES E6 Parathoracic tenderness: Yes E6 Buttocks tenderness: No E6 Sacroiliac Tenderness: No POSTURAL and MUSCULO-SKELETAL EVALUATION: Coronal Balance: NEUTRAL Recumbent testing: Patient is able to lay flat on back Sagittal Balance: NEUTRAL Shoulder Profile: LEVEL Pelvic Girdle: LEVEL Neck ROM: RESTRICTED with pain Lumbar ROM: RESTRICTED Shoulder ROM: Symmetrical Hip ROM: Symmetrical Knee ROM: Symmetrical Hands: Normal appearance, symmetrical Feet: Normal appearance, Symmetrical VASCULAR STATUS : LEFT RIGHT Wrist Pulses INTACT INTACT Pedal Pulses (Dors. pedis & post.tibialis) INTACT INTACT Color NORMAL NORMAL Edema Absent Absent NEUROLOGIC EXAMINATION: Mental Status:Awake and alert, fully oriented, with normal attention, concentration and memory, and fluent, appropriate speech. Cranial Nerves: I: Olfactory not tested. II: Visual acuity normal, no visual field deficit noted with confrontation. III,IV: Normal pupillary reflexes & intact extraocular movements without nystagmus. V,: Intact symmetrical facial sensation. VII: Intact symmetrical facial motor movement VIII: Hearing intact. IX,X: Intact gag, swallow, & normal voice. XI: Sternocleidomastoid, trapezius function intact. XII: Tongue midline with normal movements. L'hermitte's Sign: Negative / absent Spurling'Sign: Absent bilaterally. Cubital percussion test: Absent bilaterally. Ko-Tinel sign - Carpal region: Absent bilaterally. Straight Leg Raising: Absent bilaterally. Crossed straight leg raise: negative O8 MOTOR EXAM (0-5/5, N/T Muscle appearance: Symmetrical, without signs of atrophy or dystrophy UPPER EXTREMITY RIGHT LEFT Shoulder Abduction 5/5 5/5 Biceps 5/5 4/5 Triceps 4+/5 4/5 Wrist Extension 4+/5 4/5 Hand Intrinsics 5/5 5/5 [employer] Consultant 5/5 5/5 Hand and finger dexterity intact bilaterally? yes Disdiadochokinesis examination negative bilaterally? yes LOWER EXTREMITY RIGHT LEFT Hip Flexion 5/5 5/5 Knee Extension 5/5 5/5 Knee Flexion 5/5 5/5 Dorsiflexion 5/5 5/5 Plantarflexion 5/5 5/5 EHL 5/5 5/5 FHL 5/5 5/5 REFLEXES(0-4/2, NT)Upper ExtremityLower Extremity Right 2 2 Left 2 2 Pathological Reflexes RIGHT LEFT Ko's Present Absent Clonus Absent Absent Babinski Absent Absent Sensory system (0-4, N/T) Test type RU JEFFREY RL LL Joint-Position 2 2 2 2 Vibration 2 2 2 2 Pain & LT sense 2 2 2 2 Dermatomal Deficit: None C5-C6 None None Gait and Functional Evaluation: Ambulatory aids: Cane Romberg's test: Intact bilaterally Steady Gait RADIOGRAPHIC STUDIES: XRay Cervical multiview (Lateral, Flexion, Extension, AP, Oblique) 5 views taken at on 12/24/21 of Spine: it was reviewed and demonstrate spondylosis C5-C6 with disc collapse. There is flattening of the normal cervical lordosis secondary to this change. There is facet arthrosis. There is mild spondylosis noted C4 5 and C6 7. No acute fractures or dislocations. Occipital cervical joints as well as C1-C2 joints are stable. [facility] at [facility] from 04/10/2021 of Cervical Spine: images reviewed with the patient demonstrates C5-C6 herniated nucleus pulposus with moderate to severe stenosis centrally as well as foraminally bilaterally. Beginning stages myomalacia noted. There is disc desiccation at C5-C6 as well as C4 5 and C6 7. To a lesser extent at these other levels. No acute fracture or dislocations otherwise noted occipital cervical C1 2 joints appear stable. IMPRESSION: It was my pleasure to have seen and examined Fer. I reviewed the patient's clinical syndrome, physical findings, and imaging studies during the appointment today. It is my impression that the patient has a diagnosis of. 1. C5-C6 herniated nucleus pulposuswith stenosis 2.left upper extremity weakness 3. left upper extremity radiculopathy 4. Neck pain I outlined the natural course history without intervention and various interv entional options. PLAN All options were reviewed today, we decided the best course of action would be: -Advised patient to continue with supplements, health maintenance, and home exercise programs. Patient expressed understanding and will continue with these modalities. -I discussed treatment options with the patient, including operative and non- operative options, and they have elected to proceed with the following surgical procedure: C5-6 Total disc replacement The indications, risks, benefits, and alternatives to surgery were discussed with the patient and family at length. Specifically (but not limited to) the risks of infection, stiffness, recurrence of symptoms, need for revision surgery, local numbness, neurovascular injury, and blood clots were discussed. The patient's questions were answered. The decision to proceed was made. Consent will be obtained for the procedure. -Ambulate daily -Take pain medications and post op medications as needed and as directed -Ice and rest for pain and swelling control. Spine Surgery Risk Review Mr. Gil is presenting for evaluation of cervical pain. It was my pleasure to have seen and examined Mr. Gil. In our visit today we have had a chance to go over subjective complaints, physical examination findings and treatments including the natural course history without intervention and various interventional options. The patients imaging demonstrates: XRay Cervical multiview (Lateral, Flexion, Extension, AP, Oblique) 5 views taken at on 12/24/21 of Spine: it was reviewed and demonstrate spondylosis C5-C6 with disc collapse. There is flattening of the normal cervical lordosis secondary to this change. There is facet arthrosis. There is mild spondylosis noted C4 5 and C6 7. No acute fractures or dislocations. Occipital cervical joints as well as C1-C2 joints are stable. MRI [facility]completed at [facility] from 04/10/2021 of Cervical Spine: images reviewed with the patient demonstrates C5-C6 herniated nucleus pulposus with moderate to severe stenosis centrally as well as foraminally bilaterally. Beginning stages myomalacia noted. There is disc desiccation at C5-C6 as well as C4 5 and C6 7. To a lesser extent at these other levels. No acute fracture or dislocations otherwise noted occipital cervical C1 2 joints appear stable. On physical exam, Mr. Gil demonstrates: Patient reports aching, burning cervical pain ongoing for many months with no known injury or trauma to indicate an exact onset of their symptoms. In addition to their cervical pain, they do report that it radiates into the left upper extremity, associated with numbness and tingling through the C5-C6 dermatomal distribution. Furthermore he reports loss in dexterity with regards to the left hand as well over time. Overall the patient has seen a progressive increase in symptoms since their onset. Mr. Gil symptoms are exacerbated with any twisting of the neck and use of the left arm, due to this they notes that it is increasingly difficult for Mr. Gil to complete many of their daily tasks. Patient is having severe sleep disturbances as well due to their ongoing pain and associated symptoms. I have explained to the patient that as their condition progresses it will cause further neurological deficits and eventual paralysis. Based on the patients imaging, physical exam, and the rapid progression and disabling nature of their symptoms, at this time I recommend surgery in the form of a: C5-6 Total Disc Replacement. I discussed the risk and benefits of this procedure at length with Mr. Gil. The patient agreed to considered pursuing the procedure abovementioned. Prior to surgery, she should follow up with her PCP (Cardio, ID, IM etc) for clearance. Questions were invited and answered, and the patient wishes to proceed as outlined below. Currently, I am recommendin. C5-6 Total Disc Replacement 2.Follow up with PCP for surgical clearance 3.Review of surgical risks and benefits as well as an educational packet on the proposed surgical procedure. Risks: All surgical procedures come with inherent risks, including those related to positioning, anesthesia, intraoperative findings, and postoperative complications. It is important to understand that surgery does not come with any guarantee of a successful outcome as complications and adverse events are always possible. The patient was given a handout in office today discussing the surgical procedure and risks associated with the intervention, both of which were discussed with the patient. These risks include but are not limited to the following: * Experiencing same, different or even worse symptoms in back, neck, arms, or legs compared to before surgery. Requiring further surgery or other forms of treatment presently or at some time in the future at same or other levels of the intended spine surgery. On an extreme but fortunately relatively rare basis severe complication such as blindness, stroke, heart attack, temporary and/or permanent nerve injury, paralysis, coma, or may occur, sometimes without known explanation. Surgical complications may include but are not limited to risk of infection, fluid accumulation in the surgical dissection site, including a seroma or hematoma, that requires additional surgery, wound drainage, bleeding, new numbness or weakness, vision changes/loss, spinal fluid leakage, non-healing and/or infected incision, headaches, difficulty or inability to swallow, hoarseness, hemopneumothorax, pneumothorax, impotence, retrograde ejaculation, vaginal dryness; injury to nerves, spinal cord, blood vessels, lymphatics or other vital organs (i.e., bowel injury, injury to the great vessels); heterotopic bone formation; complications related to the hardware such as screws, rods, cages including misplaced hardware, device failure, instrumentation at the wrong spine level, hardware fracture/breakage, or hardware loosening; vertebral failure of the spinal column above or below the newly placed hardware; retained surgical instrumentations or devices and the need for further surgery. * Medical risks of the planned spine surgery include but are not limited to generalized Infections to the whole body or local areas outside of the surgical site (sepsis), heart attack, bleeding, anaphylaxis, meningitis, seizure, epilepsy, hearing loss, burn johnson, laceration of the head or other areas of the body, bruising, hypersensitivity of the skin, bladder over distension; allergic reaction; shoulder injury related to positioning; fat, blood and air clots to other areas of the body like heart, lungs, brain; failure of internal organs such as lungs, kidneys, liver and excessive bleeding. If blood transfusions are necessary, note that transfusions may cause intolerance reactions such as anaphylaxis or other complex reactions. Despite best efforts, the results of spine surgery might not heal in terms of bone, soft tissues such as skin, fascia, ligaments, and joints. Additionally, in order to achieve best possible results, spine surgery may be carried out beyond the initially planned levels and involve decompression, fusion including insertion of hardware at levels other than the original intended area of surgical interest change some portions of the procedure in order to ensure the best possible outcomes. With spine surgery and spinal fusion, there are different off label uses of instrumentation (devices, implants and hardware) as well as biological substances (bone morphogenic proteins, demineralized bone matrix) as well as using extra bone from allograft sources (i.e. cadaver bone) or autograft (iliac crest bone, ribs, or the spine itself). The patient has been given information about these practices and their inherent risks and benefits. [facility] is an educational center that serves as a training facility for neurosurgical and orthopedic [employer] and Nursing students. Physician assistants are medically trained surgical providers who function in the outpatient, inpatient, and operating room setting under the direct supervision of the attending surgeon. [facility] has multiple operating rooms with single and overlapping rooms running daily. They currently function under the required guidelines as produced by the [facility] Finance Committee with regards to the overlapping rooms and will continue to comply with changes to this policy as they occur. The requirements include and are complied with as follows: (1) the critical portions of the overlapping rooms will not occur at the same time, (2) the attending physician will be physically present during the critical portions of the procedure and immediately available during the entire case, and (3) a back-up attending is designated should the primary attending not be immediately available. The patient has had a chance to review all the listed information, has been given print outs detailing this information, and has had all his/her questions answered to their satisfaction. It was my pleasure to have seen and examined Mr. Gil. In our visit today we have had a chance to go over my understanding of our patient's current condition, the natural course history without intervention and various interventional options. Questions were invited and answered, and the patient wishes to proceed as outlined above. I have seen and examined the patient for 25 minutes and we have spent more than 50% of the time in repeat and detailed counseling about the patient's condition, its natural course history with out and as much as can be predicted with surgery and re-review of various surgical treatment options. In conclusion, Mr. Gil requested we proceed with the above suggested surgery and are willing to accept risks and limitations of the suggested surgery as nature of the disease process and our best attempts at treatment for the condition. Thank you again for allowing us to be part of your patient's care. Please don't hesitate to contact me if you have any further questions. Follow- up: Post procedure Patient Education: (Informational booklet, instructions, etc) given at today's appointment: Yes .ED:Patient Education: Y Medications Reviewed: YES In our visit today Mr. Gil and I have had a chance to go over my understanding of the patient's current condition, the natural course history without intervention and various interventional options. Questions were invited and answered, and the patient wishes to proceed as outlined above. I will be sure to keep you updated afterMr. Jeffery returns here for further follow-up. Thank you again for your referral. Please do not hesitate to contact me if you have any further questions. Signed and authenticated by: Yuriy Up [facility] [address], [address] [address] This message is confidential, intended only for the named recipient(s) and may contain information that is privileged or exempt from disclosure under applicable law. If you are not the intended recipient(s), you are notified that the dissemination, distribution or copying of this information is strictly prohibited. If you received this message in error, please notify the sender then delete this message. Patient verbalizes understanding of the information discussed. The above note was initiated by Macie Hickey, physician recording back office medical assistant for Dr. Yuriy Canales. This note has been reviewed by Dr. Canales, who has made his personal changes and impressions for this document. CC: Miguel Martinez D.O. # SIGNED BY Yuriy Canales (GOO)07/06/2022 11:22AM Past Medical History Past Medical History: Diabetes Mellitus, GERD/Reflux, Musculoskeletal Disorder, Skin Disorder Additional Past Medical History / Comment(s): Degenerative Disc Disease, former diabetes, no insulin or PO meds now, due to diet changes and weight loss, mild Psoriasis on arms. History of Any Multi-Drug Resistant Organisms: None Reported Past Surgical History: Back Surgery, Hernia Repair, Orthopedic Surgery Additional Past Surgical History / Comment(s): vasectomy, back surgery with hardware, hernia right inguinal, left knee surgery, pain clinic procedure. Past Anesthesia/Blood Transfusion Reactions: No Reported Reaction Past Psychological History: Anxiety Smoking Status: Current every day smoker Past Alcohol Use History: Occasional Additional Past Alcohol Use History / Comment(s): Currently down to 1/4 ppd, trying to quit, has smoked on and off since age 24. Past Drug Use History: Marijuana Additional Drug Use History / Comment(s): Uses Marijuana gummies, cbd oil and balm daily for pain. Aware not to use 24 hrs before procedure. - Past Family History Father Family Medical History: No Reported History Medications and Allergies Home Medications Medication Instructions Recorded Confirmed Type Ibuprofen [Motrin] 800 mg PO Q8HR PRN 07/22/21 07/01/22 History Naproxen 250 mg PO DIRECTED PRN 08/27/21 07/01/22 History Pantoprazole [Protonix] 40 mg PO QAM 08/27/21 07/01/22 History Zanaflex (Dose Unknown) 1 tab PO DIRECTED PRN 07/01/22 07/01/22 History Allergies Allergy/AdvReac Type Severity Reaction Status Date / Time No Known Allergies Allergy Verified 07/01/22 09:25 Physical Examination Osteopathic Statement: *. No significant issues noted on an osteopathic structural exam other than those noted in the History and Physical/Consult.
[~2022-07-07 11:34] MED LIST changes: +ACETAMINOPHEN TAB 500 MG TAB PO PRN; +DEXAMETHASONE SOD PHOSPHATE 4 MG/ML 1 ML VIAL IV ONE; +GABAPENTIN 300 MG CAP PO PRN; +HYDROmorphone 0.5 MG/0.5 ML SYRINGE IVP PRN; +MIDAZOLAM 2 MG/2 ML VIAL IV PRN; +ONDANSETRON 4 MG/2 ML VIAL IVP ONE; +ONDANSETRON 4 MG/2 ML VIAL IVP PRN; +TRANEXAMIC ACID IN NACL,ISO-OS 1,000 MG in SALINE 1 100ML.BAG IVPB PRN
[2022-07-07 12:31] VITALS: TEMP 97.4
[2022-07-07 12:54] LABS: Glucose,Whole Blood 102 mg/dL (70-110)
[2022-07-07] MEDS ORDERED: SUCCINYLCHOLINE CHLORIDE 200 MG/10 ML VIAL IV ONE (13:34)
[2022-07-07] MEDS ORDERED: MIDAZOLAM 2 MG/2 ML VIAL ONE (13:34)
[2022-07-07] MEDS ORDERED: LIDOCAINE 2% INJ 20 MG/ML (2 ML VIAL) ONE (13:34)
[2022-07-07] MEDS ORDERED: PROPOFOL 10 MG/ML 20 ML VIAL IV ONE (13:34)
[2022-07-07] MEDS ORDERED: GLYCOPYRROLATE 0.2 MG/ML 2 ML VIAL ONE (13:34)
[2022-07-07] MEDS ORDERED: HYDROmorphone (PF) 1 MG/ML ONE (13:34)
[2022-07-07] MEDS ORDERED: TRANEXAMIC ACID IN NACL,ISO-OS 1,000 MG/100 ML BAG ONE (13:34)
[2022-07-07] MEDS ORDERED: KETAMINE 10 MG/ML 20 ML VIAL ONE (13:34)
[2022-07-07] MEDS ORDERED: DEXAMETHASONE SOD PHOSPHATE 4 MG/ML 1 ML VIAL ONE (13:34)
[2022-07-07] MEDS ORDERED: fentaNYL (PF) 50 MCG/ML 2 ML AMP ONE (13:34)
[2022-07-07] MEDS ORDERED: LACTATED RINGERS 1,000 ML IV ONE ×2 (14:00→14:40)
[2022-07-07] MEDS ORDERED: GELATIN SPONGE,ABSORB (LARGE) 1 EACH SPONGE TOPICAL ONE (15:14)
[2022-07-07] MEDS ORDERED: THROMBIN (BOVINE) 5,000 UNIT VIAL TOPICAL ONE (15:14)
--- NOTE | 2022-07-07 16:49 | P.DS ---
Providers Date of admission: 07/07/22 Expected date of discharge: 07/07/22 Attending physician: Yuriy Canales DO Primary care physician: [facility] Course: Hospital Course: The patient was evaluated preoperatively and found to have the diagnosis of C5- C6 spondylosis. They underwent appropriate preoperative care and were willing to undergo the intended procedure. They underwent a successful C5-C6 TDR, were recovered appropriately and sent home. The patient will be discharged home with appropriate medications, instructions and follow-up information and in stable condition. Patient Condition at Discharge: Good Plan - Discharge Summary Discharge Rx Participant: Yes New Discharge Prescriptions: New Gabapentin 300 mg PO TID #90 cap cefaDROXiL [Duricef] 500 mg PO Q12HR 5 Days #10 cap Cyclobenzaprine [Flexeril] 5 mg PO TID #90 tablet Indomethacin [Indocin] 50 mg PO BID 14 Days #56 capsule HYDROcodone/APAP 10-325MG [[place] 10-325] 1 tab PO Q4-6H PRN #56 tab PRN Reason: Pain No Action Pantoprazole [Protonix] 40 mg PO QAM Naproxen 250 mg PO DIRECTED PRN PRN Reason: Pain Ibuprofen [Motrin] 800 mg PO Q8HR PRN PRN Reason: Pain Zanaflex (Dose Unknown) 1 tab PO DIRECTED PRN PRN Reason: Muscle Spasm Discharge Medication List Ibuprofen [Motrin] 800 mg PO Q8HR PRN 07/22/21 [History] Naproxen 250 mg PO DIRECTED PRN 08/27/21 [History] Pantoprazole [Protonix] 40 mg PO QAM 08/27/21 [History] Zanaflex (Dose Unknown) 1 tab PO DIRECTED PRN 07/01/22 [History] Cyclobenzaprine [Flexeril] 5 mg PO TID #90 tablet 07/07/22 [Rx] Gabapentin 300 mg PO TID #90 cap 07/07/22 [Rx] HYDROcodone/APAP 10-325MG [[place] 10-325] 1 tab PO Q4-6H PRN #56 tab 07/07/22 [Rx] Indomethacin [Indocin] 50 mg PO BID 14 Days #56 capsule 07/07/22 [Rx] cefaDROXiL [Duricef] 500 mg PO Q12HR 5 Days #10 cap 07/07/22 [Rx] Follow up Appointment(s)/Referral(s): Yuriy Canales DO [Doctor of Osteopathic Medicine] - 2 Weeks Miguel Martinez DO [Primary Care Provider] - 1 Week Activity/Diet/Wound Care/Special Instructions: Orthopedic Discharge Instructions: Wound care and infection precautions: Keep incision clean and dry. You may remove dressing in 1-2 days. May shower; however allow soapy water to run over incision and pat dry with towel. Do not remove glue over incision. Allow glue to come off on its own. Avoid bending, twisting, lifting, pushing and pulling no greater than 5-10 pounds. Continue to wear her soft cervical collar until follow-up appointment, may remove for showers or when resting in chair. Pain meds and per prescription. Pain medication has potential to cause constipation. Increase oral fluid and fiber intake. Contact primary care provider if you have not had a bowel movement within 48 hours after discharge. No anti-inflammatory medication until discussed at first post operative visit, this including Motrin, Aleve, Mobic, Diclofenac, Aspirin. Follow up in office at 2 weeks postop Follow up with your primary care doctor 7-10 days after discharge. Return to hospital immediately if you have experience any new numbness or weakness in upper extremities, increased swelling of the neck or difficulty breathing or chest pain. Contact our office if you experience any increased redness, pain or discharge at the incision site or pain that worsens despite taking medication as prescribed, Contact [facility] with any questions, . Discharge Disposition: HOME SELF-CARE
[2022-07-07] MEDS ORDERED: HYDROcodone/APAP 10-325MG 1 EACH TAB ONE (17:40)
[2022-07-07] MEDS ORDERED: HYDROcodone/APAP 10-325MG 1 EACH TAB PO ONE (17:41)
[2022-07-07 18:07] VITALS: RESP 18
[2022-07-07 18:11] VITALS: BP 176/94; PULSE 52
--- NOTE | 2022-07-07 18:19 | FL ---
EXAMINATION TYPE: FL guidance operating room, XR cervical spine limited DATE OF EXAM: 07/07/2022 COMPARISON: NONE HISTORY: 52-year-old male anterior cervical disc replacement FINDINGS: Intraoperative fluoroscopy during placement of intervertebral disc replacement FLUOROSCOPY Fluoroscopy time of 24 seconds was used during cervical disc replacement. 7 image/s document/s the p rocedure. DOSE AREA PRODUCT (DAP) UGY*M,MGY*CM: 0.4344 IMPRESSION: Intraoperative fluoroscopy as above.
--- NOTE | 2022-07-07 18:31 | P.OP ---
Date of Procedure: 07/07/22 Preoperative Diagnosis: 1. C5-6 spondylosis with HNP and stenosis 2. UE radiculopathy and weakness 3. Neck pain Postoperative Diagnosis: 1. C5-6 spondylosis with HNP and stenosis 2. UE radiculopathy and weakness 3. Neck pain Procedure(s) Performed: 1. C5-6 Total disc replacement (03371) Use of IONM Implants: Pro disc C SK 6mm Large Deep Anesthesia: GETA Surgeon: Yuriy Canales Seam Press Operator #1: Laurie Camejo (Was present and assisted with all aspects of the case from positioning to dressing) Estimated Blood Loss (ml): 25 IV fluids (ml): 550 Urine output (ml): 0 Pathology: none sent Condition: stable Disposition: PACU Indications for Procedure: Mr. Gil is presenting for evaluation of cervical pain. It was my pleasure to have seen and examined Mr. Gil. In our visit today we have had a chance to go over subjective complaints, physical examination findings and treatments including the natural course history without intervention and various interventional options. The patients imaging demonstrates: XRay Cervical multiview (Lateral, Flexion, Extension, AP, Oblique) 5 views taken at on 12/24/21 of Spine: it was reviewed and demonstrate spondylosis C5-C6 with disc collapse. There is flattening of the normal cervical lordosis secondary to this change. There is facet arthrosis. There is mild spondylosis noted C4 5 and C6 7. No acute fractures or dislocations. Occipital cervical joints as well as C1-C2 joints are stable. [facility] 04[facility]10[facility]21 of Cervical Spine: images reviewed with the patient demonstrates C5-C6 herniated nucleus pulposus with moderate to severe stenosis centrally as well as foraminally bilaterally. Beginning stages myomalacia noted. There is disc desiccation at C5-C6 as well as C4 5 and C6 7. To a lesser extent at these other levels. No acute fracture or dislocations otherwise noted occipital cervical C1 2 joints appear stable. On physical exam, Mr. Gil demonstrates: Patient reports aching, burning cervical pain ongoing for many months with no known injury or trauma to indicate an exact onset of their symptoms. In addition to their cervical pain, they do report that it radiates into the left upper extremity, associated with numbness and tingling through the C5-C6 dermatomal distribution. Furthermore he reports loss in dexterity with regards to the left hand as well over time. Overall the patient has seen a progressive increase in symptoms since their onset. Mr. Gil symptoms are exacerbated with any twisting of the neck and use of the left arm, due to this they notes that it is increasingly difficult for Mr. Gil to complete many of their daily tasks. Patient is having severe sleep disturbances as well due to their ongoing pain and associated symptoms. I have explained to the patient that as their condition progresses it will cause further neurological deficits and eventual paralysis. Based on the patients imaging, physical exam, and the rapid progression and disabling nature of their symptoms, at this time I recommend surgery in the form of a: C5-6 Total Disc Replacement. I discussed the risk and benefits of this procedure at length with Mr. Gil. The patient agreed to considered pursuing the procedure abovementioned. Prior to surgery, she should follow up with her PCP (Cardio, ID, IM etc) for clearance. Questions were invited and answered, and the patient wishes to proceed as outlined below. Currently, I am recommendin. C5-6 Total Disc Replacement Description of Procedure: C5-6 TDR The patient was seen and examined in the preoperative area. All preoperative protocols were followed. Informed consent was obtained risks and benefits of the procedure were discussed at length. Risks including bleeding infection damage to the surrounding tissue and risk of reoperation were discussed with the patient. Risk of anesthesia up to and including was a discussed with the patient. These are outlined in the risk review. They were willing to accept these risks and all the risks of surgery. The patient was given a weight-based dose of antibiotics in the form of 2 g Ancef. The patient was seen and evaluated by the anesthesia team who deemed them fit for surgery. The site was marked, the patient was willing to proceed with the procedure. The patient was transferred to the operative suite by the Department of anesthesia. They were then drifted off to sleep by the department anesthesia and GETA was performed. The patient tolerated this well. Deluca catheter was placed by nursing staff, a-traumatically. Once confirmation of lines and ventilation the patient was transferred to a Supine Justino table very carefully. All bony prominences including wrists, elbows, axilla, chest, hips, and thighs, and feet were padded very well. Special attention was paid to the genitalia, and these were padded accordingly. SCDs were placed on bilateral lower extremities and were connected. Arms were well padded and placed at their side thumbs up.Shoulder roll was placed and shoulder were gently taped to table. Once in position, again we confirmed good ventilation capabilities and that lines were running appropriately. The patients Cervical spine was then exposed. 1010s were placed outlining the incision site. Standard alcohol was used to clean the incision site and allowed to dry. C-arm was used to bio-yair the patient and confirm level for incision which was marked with a skin marker. Operative briefing was performed with all teams and everyone in agreement to proceed. The patient was then prepped and draped in a normal sterile fashion. Timeout was then performed, and all parties agreed with the procedure to be performed. Transverse skin incision was then made on the right side of the patients neck 3 cm and dissection taken down to the platysma which was split transversely. Sub platysma flap was made, and interval identified between SCM and medial structures. Omohyoid was visualized and protected. Blunt dissection taken down to the anterior cervical facia which was identified. Blunt prob was then placed and lateral image taken which confirmed levels for operation. These levels were then marked with a bovi. Subperiosteal dissection of the longissimus muscles were then done over these levels identifying uncovertebral joints bilaterally. Retractor was then placed deep to these muscles and held in place with a bed arm. [place] pins were placed into C5 and C6 and gentle parallel distraction taken out over the levels. Darrell rongure used to remove disc material. Operating microscope brought in for visualization. Complete discectomy performed at this level with curette, rongure and pituitary. High speed iris used to remove ost eophytes anteriorly and posteriorly until PLL was identified. 6-0 up curette then used to identify the canal and resect the PLL. 2-0 and 3-0 Kerr[place] used then to remove PLL and disc herniation and performed b/l foraminotomies. Once good decompression accomplished, meticulous hemostasis was performed. Sizers were then placed under lateral fluoroscopy until the desired height and alignment. A 6 trial was then placed and secured. Distraction removed for cuts. AP and lateral image confirmed central placement. Chisel was then sent over the trial to create the keel cuts. Trial was then removed and gentle distraction placed again. Further clean up of the endplates done as well as foramen and decompression. Disc space was irrigated thoroughly. Final implant was then placed under lateral image to match the keel cuts and was placed optimally on AP and lateral imaging. Once inplace the implant was tested and was secured. Motors run before and after implant placement were stable. The w ound bed was irrigated. Distraction pins removed and bone wax placed in their void. Bone wax placed on any bleeding bony surfaces. Surgicel then placed deep in the wound and retractors removed after inspection without injury. Final AP and lateral images confirmed good placement of implant with good height and alignment resotration. The wound was then irrigated copiously with NSS. Surgicel placed deep in the wound. Layered closure then performed with 3-0 Vicryl in the platysma and sub- Q tissue. 4-0 Strata fix in the subcuticular tissue. The wound was then cleaned, and dried and skin glue placed. Once glue dried an Opifoam was placed. The patient was then transferred back to their hospital bed a-traumatically. The drain continued to hold suction. They were placed in a soft collar. They were then awakened by the department of anesthesia having tolerated the procedure well without complications.
--- NOTE | 2022-07-07 19:51 | XR ---
EXAMINATION TYPE: XR cervical spine limited DATE OF EXAM: 07/07/2022 COMPARISON: None HISTORY: Post surgery TECHNIQUE: Two-view cervical spine FINDINGS: There is a disc spacer placed at C5-C6. Remaining disc heights appear preserved. Postsurgic al changes are in the prevertebral space. Posterior spinal lamellar line is intact. IMPRESSION: 1. Post C5-6 disc spacer placement
== END 2022-07-07 18:23 | disposition home or self-care (01) ==
LOC: OR 11:34
PROVIDERS: ATTEND Orthopaedic Surgery
DX: M50.122 Cervical disc disorder at C5-C6 level with radiculopathy (principal); M47.22 Other spondylosis with radiculopathy, cervical region; M48.02 Spinal stenosis, cervical region; E11.9 Type 2 diabetes mellitus without complications; K21.9 Gastro-esophageal reflux disease without esophagitis; F12.90 Cannabis use, unspecified, uncomplicated; F41.9 Anxiety disorder, unspecified; F17.210 Nicotine dependence, cigarettes, uncomplicated; Z86.59 Personal history of other mental and behavioral disorders; Z98.890 Other specified postprocedural states; Z79.899 Other long term (current) drug therapy
CPT/HCPCS: 86900; 86901; 86850; 72040; 36415; 22856; C1713; J2250; J0330; J1100; J0690; J2405; J3010; J1170 ×2; J2704; J2001

== ENCOUNTER → 2023-04-05 | Outpatient (CLI) | payer OTHER ==
--- NOTE | 2023-04-05 08:23 | CT ---
EXAMINATION TYPE: CT lumbar spine wo con CT DLP: 1618.8 mGycm, Automated exposure control for dose reduction was used. DATE OF EXAM: 04/05/2023 7:30 AM COMPARISON: 09/10/2020. CLINICAL INDICATION:Male, 52 years old with history of M54.10 RADICULOPATHY, SITE UNSPECIFIED; Low ba ck pain radiating down left leg. TECHNIQUE: Multiple axial images were obtained from the midportion of T11 through the sacroiliac cristobal nts. Soft tissue and bone windows in coronal and sagittal planes were obtained and reviewed. Contrast used: mL of , (None, if empty). Oral contrast used: (None, if empty). FINDINGS: Alignment: There are 5 lumbar type vertebral bodies within normal alignment. Bone: Fixation devices chain the L4-L5 spinous process. There is degeneration changes with osteophyt e formation throughout the spine. Discs: T12-L1: No spinal canal or neural foraminal stenosis is identified. L1-L2: No spinal canal or neural foraminal stenosis is identified. L2-L3: No spinal canal or neural foraminal stenosis is identified. L3-L4: No spinal canal or neural foraminal stenosis is identified. L4-L5: Facet joint arthropathy and disc bulging result with mild spinal canal stenosis and moderate t o severe left and moderate neural foraminal stenosis. L5-S1: No spinal canal or neural foraminal stenosis is identified. Other: Similar left extrarenal pelvis. Atherosclerosis of the arterial vasculature. Fixation device b etween the L4 and L5 spinous processes. IMPRESSION: 1. Mild degeneration changes with neural foraminal stenosis worse at L4-L5 moderate to severe left i n moderate right. 2. No evidence of fracture.
== END | disposition home or self-care (01) ==
LOC: RADCTMAIN 07:15
PROVIDERS: ATTEND Orthopaedic Surgery
DX: M47.26 Other spondylosis with radiculopathy, lumbar region (principal); M99.73 Connective tissue and disc stenosis of intervertebral foramina of lumbar region
CPT/HCPCS: 72131

== ENCOUNTER → 2023-07-24 | Outpatient (CLI) | payer OTHER ==
--- NOTE | 2023-07-24 21:57 | MR ---
EXAMINATION TYPE: MR lumbar spine wo con DATE OF EXAM: 07/24/2023 COMPARISON: 04/15/2021 HISTORY: Low back pain, numbness, and burning into Left side x3 years, Hx back surgery 12-07-2021 TECHNIQUE: Multiplanar, multisequence images of the lumbar spine were acquired without IV contrast. Findings: The lumbar vertebral segments are normal in height and alignment is no fracture or subluxation. There is mild disc space narrowing, circumferential disc bulge and spondylosis indicating mild degenerativ e disease at the L2-3, L3-4 and L4-5 levels. There is no lumbar disc herniation. There are postsurgical changes with metallic device between the posterior spinous processes of L4 and L5. Secondary to circumferential disc bulge and facet arthropathy, there is a mild spinal stenosis at the L4-5 level. There is severe facet arthropathy at the L5-S1 level and mild facet arthropathy at the L 3-4 and L4-5 levels. There is mild neuroforaminal stenosis at the L4-5 level on the left and mild neural foraminal stenosi s at L4-5 and L5-S1 on the right. IMPRESSION: 1. Postsurgical changes of a spacer between the posterior spinous processes of L4 and L5. 2. No lumbar spine fracture or malalignment. 3. mild degenerative disc disease at the L2-3, L3-4 and L4-5 levels without focal disc protrusion or herniation 4. Mild spinal stenosis at the L4-5 level. 5. Mild neural foraminal stenosis at L4-5 on the left and at the L4-5 and L5-S1 levels on the right
== END | disposition home or self-care (01) ==
LOC: RADMRIMAIN 20:15
PROVIDERS: ATTEND Orthopaedic Surgery
DX: M51.36 Other intervertebral disc degeneration, lumbar region (principal); M99.73 Connective tissue and disc stenosis of intervertebral foramina of lumbar region
CPT/HCPCS: 72148